=== PATIENT | female | born 1995 | race Caucasian/White ===

== ENCOUNTER 2021-04-23 04:09 | Emergency (ER) | payer BC ==
[~2021-04-23] VITALS: Ht 154.9 cm; Wt 58.1 kg
[2021-04-23 04:39] LABS: HEMATOCRIT 39.5 % (31.2-41.9); MEAN CORPUSCULAR HEMOGLOBIN 28.7 uug (24.7-32.8); MEAN CORPUSCULAR VOLUME 85.2 fL (75.5-95.3); PLATELET COUNT (AUTO) 244 K/uL (179-408)
[2021-04-23 04:45] LABS: CARBON DIOXIDE 26 mmol/L (21-32); CHLORIDE 105 mmol/L (98-107); CREATININE 0.8 mg/dL (0.6-1.3); GLUCOSE 100 mg/dL (74-106); POTASSIUM 3.5 mmol/L (3.5-5.1); UREA NITROGEN, BLOOD 14 mg/dL (7-18)
[2021-04-23 04:56] LABS: ALANINE AMINOTRANSFERASE 12 U/L (14-59); ALKALINE PHOSPHATASE 65 U/L (50-136); ASPARTATE AMINOTRANSFERASE 8 U/L (15-37); BILIRUBIN,TOTAL 0.5 mg/dL (0.2-1.0); TOTAL PROTEIN, SERUM 6.9 g/dL (6.4-8.2)
[2021-04-23 04:57] LABS: BILIRUBIN,DIRECT < 0.1 mg/dL (0.0-0.2)
[2021-04-23 05:03] LABS: *BILIRUBIN,URIN NEGATIVE (NEGATIVE); *BLOOD, URINE NEGATIVE (NEGATIVE); *CLARITY,URINE CLEAR (CLEAR); *COLOR,URINE YELLOW (YELLOW); *KETONES,URINE 1+ (NEGATIVE); *UROBILINOGEN,URINE 0.2 E.U./dl (NORMAL); LEUKOCYTE ESTERASE ,URINE NEGATIVE (NEGATIVE); NITRITE, URINE NEGATIVE (NEGATIVE); PH,URINE 5.5 (5.0-8.0); UGLUCOSE NEGATIVE (NEGATIVE)
--- NOTE | 2021-04-23 05:03 | NUR ---
Blood drawn,UA to lab,EKG NSR,Comfort measures x2. Patient able to rest.
[2021-04-23] MEDS ORDERED: [UNRECOGNIZED DRUG - CODE] PO (05:18)
[2021-04-23 06:28] VITALS: BP 108/68
== END 2021-04-23 05:30 | disposition home or self-care (01) ==
LOC: ER 04:11
DX: R55 Syncope and collapse (principal); E83.51 Hypocalcemia; R30.0 Dysuria
CPT/HCPCS: 36415; 85025; 93005; A4663